=== PATIENT | female | born 1970 | race Caucasian/White ===

== ENCOUNTER → 2020-05-18 | Outpatient (CLI) | payer OTHER | LOC: KOH-I 08:24 | DX: M51.36 Other intervertebral disc degeneration, lumbar region (principal); M43.16 Spondylolisthesis, lumbar region; M51.26 Other intervertebral disc displacement, lumbar region; M48.061 Spinal stenosis, lumbar region without neurogenic claudication; R93.7 Abnormal findings on diagnostic imaging of other parts of musculoskeletal system | CPT/HCPCS: 72148 ==

== ENCOUNTER → 2020-06-17 | Outpatient (CLI) | payer OTHER | LOC: EXRD 06-07 11:30 | DX: M86.9 Osteomyelitis, unspecified (principal); M81.0 Age-related osteoporosis without current pathological fracture | CPT/HCPCS: 77080 ==

== ENCOUNTER → 2020-07-29 | Outpatient (CLI) | payer OTHER | LOC: EMI 09:00 | DX: R56.9 Unspecified convulsions (principal) | CPT/HCPCS: 70553; A9577 ==

== ENCOUNTER 2020-08-29 17:55 | Emergency (ER) | payer OTHER | END 2020-08-29 20:50 | disposition home or self-care (01) | LOC: ER1 17:55 | DX: S20.212A Contusion of left front wall of thorax, initial encounter (principal); F17.200 Nicotine dependence, unspecified, uncomplicated; Z88.2 Allergy status to sulfonamides; Z88.8 Allergy status to other drugs, medicaments and biological substances; Z23 Encounter for immunization; V49.40XA Driver injured in collision with unspecified motor vehicles in traffic accident, initial encounter; Y92.410 Unspecified street and highway as the place of occurrence of the external cause | CPT/HCPCS: 71250; 90715; 93005; 99284; J1885 ==